=== PATIENT | female | born 1970 | race African-American/Black ===

== ENCOUNTER 2017-01-24 13:20 | Emergency (ER) | payer SELFPAY ==
[2017-01-24 13:29] VITALS: BP 180/111; PULSE 80; TEMP 98.3; BMI 30.8
[2017-01-24] MEDS ORDERED: amLODIPine BESYLATE 5 MG TABLET (FP) PO ONE (14:03)
--- NOTE | 2017-01-24 14:03 | PDOC ---
History of Present Illness - General Chief Complaint: Blood Pressure Problem Stated Complaint: HIGH BLOOD PRESSURE Time Seen by Provider: 01/24/17 13:39 History Source: Patient Exam Limitations: No Limitations - History of Present Illness Initial Comments: 01/24/17 14:19 MY Chief Complaint: elevated blood pressure noted at health screening at work today History of present illness: She is a 46-year-old female with a history of hypertension here today due to patient having a health screening at her job today and her blood pressure was noted to be 180/118. She has not been taking any medication for her blood pressure since October 2015. Patient reports that she is followed at [facility] with Dr. Rosalia Estrella however patient has not continued to take medication and does not have a good reason why. Patient denies any headache, dizziness, chest pain, shortness of breath, decreased urination, change in vision or any other symptoms. 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 Loida gomez and had a stress test and echocardiogram. Patient according to pharmacist at [facility] her last blood pressure medication was Norvasc 5 mg daily from November 2015. Timing/Duration: unsure Severity: moderate Associated Symptoms: reports: denies symptoms Past History - Past Medical History Allergies/Adverse Reactions: Allergies Allergy/AdvReac Type Severity Reaction Status Date / Time No Known Allergies Allergy Verified 01/24/17 13:22 Home Medications: Ambulatory Orders Amlodipine Besylate [Norvasc -] 5 mg PO DAILY #30 tablet 01/24/17 HTN: Yes (non complaint with meds) - Surgical History Abdominal Surgery: Yes (ovarian benign tumor) - Psycho/Social/Smoking Cessation Hx Anxiety: No Suicidal Ideation: No Smoking History: Never smoked Have you smoked in the past 12 months: Yes Number of Cigarettes Smoked Daily: 10 Information on smoking cessation initiated: Yes Hx Alcohol Use: Yes (wine) Drug/Substance Use Hx: Yes (piedad) Substance Use Type: None Review of Systems - Review of Systems Able to Perform ROS?: Yes Constitutional: No: Symptoms Reported HEENTM: No: Symptoms Reported Respiratory: No: Symptoms reported Cardiac (ROS): No: Symptoms Reported ABD/GI: No: Symptoms Reported Musculoskeletal: No: Symptoms Reported Integumentary: No: Symptoms Reported Neurological: No: Symptoms reported *Physical Exam - Vital Signs Last Vital Signs Temp Pulse Resp BP Pulse Ox 98.3 F 80 18 180/111 100 01/24/17 13:22 01/24/17 13:22 01/24/17 13:22 01/24/17 13:22 01/24/17 13:22 - Physical Exam General Appearance: Yes: Appropriately Dressed HEENT: positive: EOMI, GEORGE, Normal ENT Inspection Neck: negative: Lymphadenopathy (R), Lymphadenopathy (L), Thyromegaly Respiratory/Chest: positive: Lungs Clear, Normal Breath Sounds. 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 negative: Numbness, Sensory Deficit Medical Decision Making - Medical Decision Making 01/24/17 14:23 She is a 46-year-old female with a history of hypertension here today due to patient having a health screening at her job today and her blood pressure was noted to be 180/118. She has not been taking any medication for her blood pressure since October 2015. Patient reports that she is followed at [facility] with Dr. Rosalia Estrella however patient has not continued to take medication and does not have a good reason why. Patient denies any headache , dizziness, chest pain, shortness of breath, decreased urination, change in vision or any other symptoms. 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 Loida gomez and had a stress test and echocardiogram. Patient according to pharmacist at [facility] her last blood pressure medication was Norvasc 5 mg daily from November 2015. hypertension untreated asymptomatic PLAN: norvasc 5 gm now than daily follow up with primary as soon as possible no dizziness, headache, or lightheadedness, will discharge 01/24/17 19:31 *DC/Admit/Observation/Transfer Diagnosis at time of Disposition: Hypertension Qualifiers: Hypertension type: essential hypertension Qualified Code(s): I10 - Essential ( primary) hypertension - Discharge Dispostion Disposition: HOME Condition at time of disposition: Stable - Prescriptions Prescriptions: Amlodipine Besylate [Norvasc -] 5 mg PO DAILY #30 tablet - Patient Instructions Additional Instructions: Follow-up with your primary care provider this week Return to emergency room if any headaches, dizziness, chest pain, any shortness of breath or any other symptoms Do not add any salt to your foods or use canned vegetables or eat cold cuts Follow up with account services associate [phone] call for an appointment Patient voiced understanding of discharge instructions and all questions were answered
[2017-01-24] MEDS ORDERED: amLODIPine BESYLATE 5 MG TABLET (FP) ONE (14:09)
== END 2017-01-24 15:25 | disposition home or self-care (01) ==
LOC: JERFT 13:20
DX: I10 Essential (primary) hypertension (principal); Z91.14 Patient's other noncompliance with medication regimen
CPT/HCPCS: 99281-25